=== PATIENT | female | born 1955 | race Caucasian/White ===

== ENCOUNTER 2018-01-14 20:49 | Emergency (ER) | payer OTHER ==
[~2018-01-14] VITALS: Ht 160 cm; Wt 81.6 kg
[~2018-01-14 20:49] MED LIST: ENAL10TA PO; GEMF600T PO; HYDR12.5 PO; METF-440 PO; SIMV20TA6 PO
[2018-01-14 20:55] VITALS: BP 136/94
== END 2018-01-14 21:24 | disposition home or self-care (01) ==
LOC: ER 20:56
DX: S80.261A Insect bite (nonvenomous), right knee, initial encounter (principal); E11.9 Type 2 diabetes mellitus without complications; I10 Essential (primary) hypertension; Z88.6 Allergy status to analgesic agent; Z88.5 Allergy status to narcotic agent; Z88.8 Allergy status to other drugs, medicaments and biological substances; Z90.49 Acquired absence of other specified parts of digestive tract; W57.XXXA Bitten or stung by nonvenomous insect and other nonvenomous arthropods, initial encounter; Y93.89 Activity, other specified; Y92.89 Other specified places as the place of occurrence of the external cause; Y99.8 Other external cause status
CPT/HCPCS: A4606; Z7610

== ENCOUNTER 2023-11-17 13:42 | Emergency (ER) | payer MEDICARE, OTHER ==
[~2023-11-17] VITALS: Ht 160 cm; Wt 72.6 kg
[~2023-11-17 13:42] MED LIST changes: -ENAL10TA PO; +ENAL10TA39 PO; +SIMV-46 PO; -SIMV20TA6 PO
[2023-11-17] MEDS ORDERED: AMOXICILLIN TRIHYDRATE 250 MG CAPSULE ONE (14:42)
[2023-11-17] MEDS ORDERED: IBUPROFEN 600 MG TABLET ONE (14:43)
[2023-11-17] MEDS: AMOXICILLIN TRIHYDRATE 500 MG CAPSULE PO ONE (14:45)
[2023-11-17] MEDS: IBUPROFEN 600 MG TABLET PO ONE (14:46)
[2023-11-17] MEDS ORDERED: AMOX500C2 PO (14:51)
[2023-11-17 14:59] VITALS: BP 120/61; TEMP 98.3; O2SAT 100
== END 2023-11-17 15:00 | disposition home or self-care (01) ==
LOC: ER 13:45
DX: K08.89 Other specified disorders of teeth and supporting structures (principal); I10 Essential (primary) hypertension; E11.9 Type 2 diabetes mellitus without complications; Z78.0 Asymptomatic menopausal state; Z88.8 Allergy status to other drugs, medicaments and biological substances; Z91.011 Allergy to milk products

== ENCOUNTER 2024-07-27 17:14 | Emergency (ER) | payer MEDICARE, OTHER ==
[~2024-07-27] VITALS: Ht 152.4 cm; Wt 72.6 kg
[~2024-07-27 17:14] MED LIST changes: +AMOX500C2 PO
[2024-07-27 18:32] VITALS: TEMP 99.5
[2024-07-27] MEDS ORDERED: IBUP-1953 PO (21:32)
[2024-07-27] MEDS ORDERED: ACET-868 PO (21:32)
[2024-07-27] MEDS ORDERED: GUAI1TBM19 PO (21:33)
[2024-07-27 21:39] VITALS: BP 133/72; O2SAT 98
== END 2024-07-27 21:40 | disposition home or self-care (01) ==
LOC: ER 17:18
DX: R05.9 Cough, unspecified (principal); R68.83 Chills (without fever); B34.9 Viral infection, unspecified; E11.9 Type 2 diabetes mellitus without complications; E78.5 Hyperlipidemia, unspecified; I10 Essential (primary) hypertension; Z79.4 Long term (current) use of insulin; Z79.84 Long term (current) use of oral hypoglycemic drugs; Z79.899 Other long term (current) drug therapy; Z87.19 Personal history of other diseases of the digestive system; Z88.5 Allergy status to narcotic agent; Z90.49 Acquired absence of other specified parts of digestive tract; Z20.822 Contact with and (suspected) exposure to COVID-19